=== PATIENT | female | born 1980 ===

== ENCOUNTER 2018-06-07 08:31 | Emergency (ER) | payer OTHER ==
[2018-06-07 08:36] VITALS: BMI 33.6
--- NOTE | 2018-06-07 10:13 | ED PDOC ---
Lower Extremity Pain/Injury Time Seen by Provider: 06/07/18 08:35 Chief Complaint (Nursing): Lower Extremity Problem/Injury Chief Complaint (Provider): Lower Extremity Problem/Injury History Per: Patient History/Exam Limitations: language barrier (Claudia Celis #[id number]) Onset/Duration Of Symptoms: Other (one month) Current Symptoms Are (Timing): Still Present Additional Complaint(s): Patient is a 37 y/o female with no significant PMHx who presents to the ED for evaluation of severe, left lower leg pain ongoing for the past month. Patient states this is her first time seeing a doctor for the matter. Patient has not been taking pain medication for relief. Patient denies back pain, urinary symptoms or . PCP: None Provided Past Medical History Reviewed: Historical Data, Nursing Documentation, Vital Signs Vital Signs: Last Vital Signs Temp 97 F L 06/07/18 08:35 Pulse 72 06/07/18 08:35 Resp 16 06/07/18 08:35 BP 158/95 H 06/07/18 08:35 Pulse Ox 100 06/07/18 08:35 - Medical History Other PMH: Miscarriage - Surgical History Surgical History: (two) - Family History Family History: States: No Known Family Hx - Social History Current smoker - smoking cessation education provided: No Alcohol: None Drugs: Denies - Home Medications Home Medications: Ambulatory Orders Medication Instructions Recorded Ibuprofen [Motrin] 600 mg PO Q6H PRN #20 tab 06/07/18 - Allergies Allergies/Adverse Reactions: Allergies Allergy/AdvReac Type Severity Reaction Status Date / Time No Known Allergies Allergy Verified 06/07/18 08:48 Wells Criteria for PE - Wells Criteria for Pulmonary Embolism Clinical Signs and Symptoms of DVT: No P.E is #1 Diagnosis, or Equally Likely: No Heart Rate >100: No Immobilization at least 3 days;Surgery previous 4 weeks: No Previous, objectively diagnosed PE or DVT: No Hemoptysis: No Malignancy w/treatment within 6 months, or palliative: No Total Score: 0 Review of Systems ROS Statement: Except As Marked, All Systems Reviewed And Found Negative Musculoskeletal: Positive for: Leg Pain (left lower). Negative for: Back Pain Physical Exam - Reviewed Nursing Documentation Reviewed: Yes Vital Signs Reviewed: Yes - Physical Exam Appears: Positive for: Non-toxic, No Acute Distress Head Exam: Positive for: ATRAUMATIC, NORMAL INSPECTION, NORMOCEPHALIC Skin: Positive for: Normal Color, Warm, Dry Eye Exam: Positive for: EOMI, Normal appearance, PERRL ENT: Positive for: Normal ENT Inspection Neck: Positive for: Normal, Painless ROM, Supple Cardiovascular/Chest: Positive for: Regular Rate, Rhythm. Negative for: Murmur Respiratory: Positive for: Normal Breath Sounds. Negative for: Respiratory Distress Gastrointestinal/Abdominal: Positive for: Normal Exam, Soft. Negative for: Tenderness Back: Positive for: Normal Inspection. Negative for: L CVA Tenderness, R CVA Tenderness, Vertebral Tenderness Extremity: Positive for: Normal ROM (pt ambulating in no distress), Capillary Refill (less than 2 s), Swelling (of left lower leg), Other (neurovascular intact; normal distal pulses. leg is warm, non tender. no cellulitis noted. no deformity or hematoma noted. ). Negative for: Deformity Neurological/Psych: Positive for: Alert, Oriented - ECG O2 Sat by Pulse Oximetry: 100 (RA) Pulse Ox Interpretation: Normal Medical Decision Making Medical Decision Making: Time: 1020 Impression: leg pain. pt has No PE risk factors; r/o DVT and occult fracture Plan: Tylenol 650 mg PO Femur Min 2 Views LT [Rad] Tibia Fibula Left [Rad] Duplex Lower Extremity Vein Left [US] Time: 1129 Extremity US FINDINGS: 2-D, color and duplex Doppler analysis of the lower extremity venous circulation using routine protocol from the femoral veins through the popliteal veins. Venous compressibility: Normal. Flow and augmentation patterns: Normal. Visualized veins upper third of calf: Normal. Sanchez cyst: None. IMPRESSION: No sonographic or Doppler evidence for DVT in left lower extremity. Time: 1348 Tibia/Fibula XR FINDINGS: BONES: Bone alignment and mineralization are normal. There is no acute displaced fracture or bone destruction. JOINT SPACES: Unremarkable. OTHER FINDINGS: None. IMPRESSION: Normal examination. Time: 1349 Femur XR FINDINGS: FEMUR: Bone alignment and mineralization are normal. There is no acute displaced fracture or bone destruction. The joint spaces are preserved. SOFT TISSUES: Normal. OTHER FINDINGS: None. IMPRESSION: Unremarkable radiographs of the left femur. Time:1426 --Patient is medically stable for discharge home. Scribe Attestation: Documented by Silverio Agrawal, acting as a scribe for Aimee Acharya MD. Provider Scribe Attestation: All medical record entries made by the Scribe were at my direction and personally dictated by me. I have reviewed the chart and agree that the record accurately reflects my personal performance of the history, physical exam, medical decision making, and the department course for this patient. I have also personally directed, reviewed, and agree with the discharge instructions and disposition. Disposition - Clinical Impression Clinical Impression: Leg pain Counseled Patient/Family Regarding: Studies Performed, Diagnosis, Need For Followup - Disposition Referrals: [facility] [Outside] [facility] [Outside] Disposition: Routine/Home Disposition Time: 14:26 Condition: IMPROVED Additional Instructions: follow up in the clinic in 2 days return to the ED with any worsening or concerning symptoms Prescriptions: Ibuprofen [Motrin] 600 mg PO Q6H PRN #20 tab PRN Reason: Pain, Moderate (4-7) Instructions: Muscle Strain (DC) Forms: SERPs (Egyptian), SERPs (Jamaican)
--- NOTE | 2018-06-07 11:32 | US ---
Date of service: 06/07/2018 HISTORY: leg pain. PRIORS: None. FINDINGS: 2-D, color and duplex Doppler analysis of the lower extremity venous circulation using routine protocol from the femoral veins through the popliteal veins. Venous compressibility: Normal. Flow and augmentation patterns: Normal. Visualized veins upper third of calf: Normal. Sanchez cyst: None. IMPRESSION: No sonographic or Doppler evidence for DVT in left lower extremity.
--- NOTE | 2018-06-07 14:24 | RAD ---
Date of service: 06/07/2018 PROCEDURE: Left Femur Radiographs. HISTORY: leg pain COMPARISON: None. TECHNIQUE: AP and Lateral Radiographs of the left femur. FINDINGS: FEMUR: Bone alignment and mineralization are normal. There is no acute displaced fracture or bone destruction. The joint spaces are preserved. SOFT TISSUES: Normal. OTHER FINDINGS: None. IMPRESSION: Unremarkable radiographs of the left femur.
--- NOTE | 2018-06-07 14:24 | RAD ---
Date of service: 06/07/2018 PROCEDURE: Radiographs of the left tibia and fibula. HISTORY: leg pain COMPARISON: None available. TECHNIQUE: Frontal and lateral views obtained. FINDINGS: BONES: Bone alignment and mineralization are normal. There is no acute displaced fracture or bone destruction. JOINT SPACES: Unremarkable. OTHER FINDINGS: None. IMPRESSION: Normal examination.
[2018-06-07 14:47] VITALS: BP 132/74; PULSE 82; RESP 19; TEMP 98
[2018-06-08 12:29] VITALS: O2SAT 100
== END 2018-06-07 14:48 | disposition home or self-care (01) ==
LOC: H.ER 08:31
DX: M79.605 Pain in left leg (principal)